=== PATIENT | female | born 1980 | race African-American/Black ===

== ENCOUNTER 2025-05-18 18:13 | Emergency (ER) | payer MEDICAID ==
[~2025-05-18] VITALS: Ht 170.2 cm; Wt 67.0 kg
[2025-05-18 18:19] VITALS: BP 144/87; TEMP 36.9; O2SAT 99
[2025-05-18 18:20] VITALS: PULSE 97; RESP 18; O2SAT 99
[2025-05-18 20:57] LABS: BASOPHILS % 0.4 % (0.0-2.0); EOSINOPHILS % 0.9 % (0.0-5.0); HEMATOCRIT. 34.4 % (36.0-48.0); HEMOGLOBIN. 11.1 g/dL (12.0-16.0); LYMPHOCYTES % 33.4 % (20.0-50.0); MEAN PLATELET VOLUME 8.2 fl (7.4-10.4); MONOCYTES % 5.8 % (2.0-8.0); NEUTROPHILS % 59.5 % (40.0-76.0); PLATELET 246 x1000/uL (130-400); RED BLOOD CELL COUNT 3.85 mill/uL (4.2-5.4); RED CELL DISTRIBUTION WIDTH 13.4 % (11.6-14.6)
[2025-05-18 21:12] LABS: CREATININE 0.6 mg/dL (0.6-1.0); UREA NITROGEN BLOOD 7 mg/dL (9-23)
[2025-05-18 21:16] LABS: INR 1.0
[2025-05-18 21:30] LABS: HCG SCREEN NEGATIVE
[2025-05-18] MEDS: KETOROLAC 30MG/ML VIAL IM ONE (21:43)
== END 2025-05-18 21:49 | disposition home or self-care (01) ==
LOC: ER 18:13
DX: N93.9 Abnormal uterine and vaginal bleeding, unspecified (principal); R10.2 Pelvic and perineal pain; Z90.49 Acquired absence of other specified parts of digestive tract
CPT/HCPCS: 99285; 76830; 76856; 80048; 84703; 85025; 85610; 85730; 86850; 86900; 86901; 36415; 96372; J1885

== ENCOUNTER 2025-06-03 10:36 | Emergency (ER) | payer OTHER, MEDICAID ==
[~2025-06-03] VITALS: Ht 167.6 cm; Wt 74.0 kg
[2025-06-03 10:42] VITALS: TEMP 37.1; O2SAT 99
[2025-06-03] MEDS: LIDOCAINE 5% PATCH TOP STA (11:52)
[2025-06-03] MEDS: KETOROLAC 30MG/ML VIAL IM ONE (12:00)
[2025-06-03] MEDS: CYCLOBENZAPRINE 10MG TABLET PO ONE (12:00)
[2025-06-03] MEDS ORDERED: CYCL10TA21 MT (13:15)
[2025-06-03] MEDS ORDERED: LIDO700A30 TP (13:15)
[2025-06-03] MEDS ORDERED: IBUP-1455 MT (13:15)
[2025-06-03 13:31] VITALS: BP 103/64; PULSE 71; RESP 16; O2SAT 100
== END 2025-06-03 13:35 | disposition home or self-care (01) ==
LOC: ER 10:36
DX: S29.012A Strain of muscle and tendon of back wall of thorax, initial encounter (principal); V43.62XA Car passenger injured in collision with other type car in traffic accident, initial encounter; Y93.89 Activity, other specified; Y92.410 Unspecified street and highway as the place of occurrence of the external cause; Y99.8 Other external cause status
CPT/HCPCS: 81025; 72100; 96372; 99284; J1885; Z7610

== ENCOUNTER 2025-06-20 20:31 | Emergency (ER) | payer MEDICAID, OTHER ==
[~2025-06-20] VITALS: Ht 170.2 cm; Wt 66.2 kg
[~2025-06-20 20:31] MED LIST: CYCL10TA21 MT; IBUP-1455 MT; LIDO700A30 TP
[2025-06-20 20:34] VITALS: O2SAT 100
[2025-06-21] MEDS: IBUPROFEN 600MG TABLET PO ONE (01:09)
[2025-06-21 01:59] VITALS: BP 104/42; PULSE 78; RESP 18; TEMP 36.8; O2SAT 100
== END 2025-06-21 02:04 | disposition home or self-care (01) ==
LOC: ER 20:31
DX: M25.511 Pain in right shoulder (principal); M54.2 Cervicalgia; R51.9 Headache, unspecified
CPT/HCPCS: 73030; 99283

== ENCOUNTER 2025-07-30 12:02 | Emergency (ER) | payer MEDICAID, OTHER ==
[~2025-07-30] VITALS: Ht 170.2 cm; Wt 73.0 kg
[2025-07-30 12:22] VITALS: O2SAT 96
[2025-07-30] MEDS ORDERED: IBUP-1455 MT (16:53)
[2025-07-30 17:08] VITALS: BP 120/70; PULSE 90; RESP 16; TEMP 37; O2SAT 98
== END 2025-07-30 17:11 | disposition home or self-care (01) ==
LOC: ER 12:05
DX: S60.221A Contusion of right hand, initial encounter (principal); M79.641 Pain in right hand; M79.644 Pain in right finger(s); W23.2XXA Caught, crushed, jammed or pinched between a moving and stationary object, initial encounter; Y93.89 Activity, other specified; Y92.89 Other specified places as the place of occurrence of the external cause; Y99.8 Other external cause status
CPT/HCPCS: 73130; 99283

== ENCOUNTER 2025-08-31 12:44 | Emergency (ER) | payer OTHER ==
[~2025-08-31] VITALS: Ht 170.2 cm; Wt 82.0 kg
[2025-08-31 12:52] VITALS: O2SAT 100
[2025-08-31 13:44] LABS: HEMATOCRIT. 40.3 % (36.0-48.0); HEMOGLOBIN. 12.7 g/dL (12.0-16.0); RED BLOOD CELL COUNT 4.78 mill/uL (4.2-5.4); RED CELL DISTRIBUTION WIDTH 19.5 % (11.6-14.6)
[2025-08-31 13:54] LABS: CREATININE 0.6 mg/dL (0.6-1.0); UREA NITROGEN BLOOD 7 mg/dL (9-23)
[2025-08-31 14:19] LABS: BAND% 2.0 % (1.0-6.0); EOSINOPHILS % MANUAL 2.0 % (0.0-5.0); LYMPHOCYTES % MANUAL 35.0 % (20.0-60.0); MONOCYTES % MANUAL 10.0 % (2.0-8.0); NEUTROPHILS % MANUAL 51.0 % (45.0-75.0); PLATELET ESTIMATE NORMAL
[2025-08-31 14:23] LABS: PLATELET 221 x1000/uL (130-400)
[2025-08-31 14:46] LABS: HCG SCREEN NEGATIVE
[2025-08-31 14:47] LABS: PROTEIN TOTAL 7.1 g/dL (6.0-8.3)
[2025-08-31 14:48] LABS: BILIRUBIN DIRECT < 0.1 mg/dL (<=3.0)
[2025-08-31 14:49] LABS: BILIRUBIN TOTAL 0.3 mg/dL (0.1-1.0)
[2025-08-31 14:57] LABS: ASPARTATE AMINOTRANSFERASE 16 IU/L (<34)
[2025-08-31] MEDS: IBUPROFEN 600MG TABLET PO ONE (15:27)
[2025-08-31] MEDS: ACETAMINOPHEN 500MG TABLET PO ONE (15:27)
[2025-08-31] MEDS: MORPHINE SULFATE 4 MG/ML INJ (FOR IV/IM USE) IV ONE (15:43)
[2025-08-31] MEDS: ONDANSETRON HCL 4MG/2ML INJ IV ONE (15:48)
[2025-08-31 16:00] LABS: CLARITY URINE CLOUDY (CLEAR); COLOR URINE YELLOW (YELLOW); GLUCOSE URINE NEGATIVE (NEGATIVE); KETONES URINE TRACE (NEGATIVE); LEUKOCYTE ESTERASE URINE NEGATIVE (NEGATIVE); NITRITE URINE NEGATIVE (NEGATIVE); OCCULT BLOOD URINE 3+ (NEGATIVE); PH URINE 6.0 (4.5-8.0); PROTEIN URINE 1+ (NEGATIVE); SPECIFIC GRAVITY URINE 1.025 (1.005-1.030); UROBILINOGEN URINE 1.0 E.U./dL (0.2-1.0)
[2025-08-31 16:05] LABS: UCG SCREEN NEGATIVE
[2025-08-31 16:24] VITALS: BP 107/59; PULSE 66; RESP 14; TEMP 37; O2SAT 99
[2025-08-31 16:32] LABS: BACTERIA URINE 2+; RBC URINE TNTC /hpf (0-2); SQUAMOUS EPITHELIAL CELL URINE 1+ /lpf (RARE/1+); WBC URINE 0-2 /hpf (0-2)
== END 2025-08-31 16:28 | disposition home or self-care (01) ==
LOC: ER 12:44 → CANBEDREQ 16:27 → ER 16:28
DX: N85.00 Endometrial hyperplasia, unspecified (principal); N93.9 Abnormal uterine and vaginal bleeding, unspecified; Z79.899 Other long term (current) drug therapy
CPT/HCPCS: 99291; 96374; 76830; 76856; 96375; 80076; 80048; 81003; 84703; 83690; 83735; 85025; 36415; 81025; J2405; J2270

== ENCOUNTER 2025-09-01 14:55 | Emergency (ER) | payer OTHER ==
[~2025-09-01] VITALS: Ht 167.6 cm; Wt 85.0 kg
[2025-09-01 14:59] VITALS: TEMP 98.2; O2SAT 99
[2025-09-01] MEDS: IBUPROFEN 400MG TABLET PO ONE (15:54)
[2025-09-01] MEDS: LEVETIRACETAM 500MG TABLET PO ONE (15:55)
[2025-09-01] MEDS: ACETAMINOPHEN 325MG TABLET PO ONE (15:55)
[2025-09-01 17:27] VITALS: BP 128/58; PULSE 82; RESP 18; O2SAT 100
== END 2025-09-01 17:33 | disposition home or self-care (01) ==
LOC: ER 14:55
DX: R56.9 Unspecified convulsions (principal); Z79.899 Other long term (current) drug therapy
CPT/HCPCS: 99291